=== PATIENT | male | born 1970 | race Caucasian/White ===

== ENCOUNTER 2017-03-09 00:48 | Emergency (ER) | payer MEDICAID, OTHER ==
[~2017-03-09] VITALS: Ht 177.8 cm; Wt 116.6 kg
[~2017-03-09 00:48] MED LIST: AMLO5TAB2 PO; ASPI-621 PO; ASPI-650 PO; ATOR80TA PO; CLOP75TA22 PO; ISOS30TA8 PO; LISI-167 PO; LISI5TAB7 PO; TICA90TA PO; TRAM100T13 PO; [UNRECOGNIZED DRUG - REMARK]
[2017-03-09] MEDS ORDERED: NITROGLYCERIN SINGLE TAB 0.4 MG SL ONE (01:21)
[2017-03-09 01:22] LABS: HEMOGLOBIN 14.2 g/dL (13.7-18.0)
[2017-03-09] MEDS ORDERED: ASPIRIN 81 MG TABLET CHEW ONE (01:22)
[2017-03-09] MEDS ORDERED: SODIUM CHLORIDE FLUSH 10ML SYR IVF ONE (01:30)
[2017-03-09] MEDS ORDERED: NITROGLYCERIN SINGLE TAB 0.4 MG SL PRN (01:30)
[2017-03-09] MEDS ORDERED: ASPIRIN 81 MG TABLET CHEW PO ONE (01:30)
[2017-03-09 01:35] LABS: BLOOD UREA NITROGEN 13 mg/dL (7-18)
[2017-03-09 01:38] LABS: IS PT STATUS REG ER OR PRE ER? YES
[2017-03-09 02:31] VITALS: BP 99/55
== END 2017-03-09 02:35 | disposition home or self-care (01) ==
LOC: ED 02:16
DX: R07.2 Precordial pain (principal); E78.5 Hyperlipidemia, unspecified; I10 Essential (primary) hypertension; I25.10 Atherosclerotic heart disease of native coronary artery without angina pectoris; I25.2 Old myocardial infarction; Z87.891 Personal history of nicotine dependence; Z95.5 Presence of coronary angioplasty implant and graft
CPT/HCPCS: 36415; 71010; 80048; 82040; 84484; 85025; 93005

== ENCOUNTER 2017-04-15 22:02 | Emergency (ER) | payer MEDICAID ==
[~2017-04-15] VITALS: Ht 180.3 cm; Wt 112.5 kg
[2017-04-15 22:04] VITALS: BP 143/97
[2017-04-15] MEDS ORDERED: KETOROLAC 30 MG/1 ML ONE (22:28)
[2017-04-15] MEDS ORDERED: METHOCARBAMOL 750 MG TABLET ONE (22:28)
[2017-04-15] MEDS ORDERED: METHOCARBAMOL 750 MG TABLET PO ONE (22:30)
[2017-04-15] MEDS ORDERED: KETOROLAC 30 MG/1 ML IM ONE (22:30)
== END 2017-04-15 23:31 | disposition home or self-care (01) ==
LOC: ED 22:50
DX: S33.5XXA Sprain of ligaments of lumbar spine, initial encounter (principal); S80.01XA Contusion of right knee, initial encounter; M17.31 Unilateral post-traumatic osteoarthritis, right knee; I10 Essential (primary) hypertension; E78.5 Hyperlipidemia, unspecified; I25.10 Atherosclerotic heart disease of native coronary artery without angina pectoris; W01.0XXA Fall on same level from slipping, tripping and stumbling without subsequent striking against object, initial encounter; Y93.89 Activity, other specified; Y92.89 Other specified places as the place of occurrence of the external cause; Y99.8 Other external cause status
CPT/HCPCS: 72110; 73564; 96372; 99284; J1885

== ENCOUNTER 2017-05-01 19:05 | Emergency (ER) | payer MEDICAID ==
[~2017-05-01] VITALS: Ht 180.3 cm; Wt 118.6 kg
[2017-05-01] MEDS ORDERED: SODIUM CHLORIDE FLUSH 10ML SYR IVF ONE (19:30)
[2017-05-01] MEDS ORDERED: SODIUM CHLORIDE 0.9% 1,000ML IV ONE (19:30)
[2017-05-01] MEDS ORDERED: ASPI-515 PO (19:34)
[2017-05-01] MEDS ORDERED: KETOROLAC 30 MG/1 ML ONE (19:48)
[2017-05-01] MEDS ORDERED: KETOROLAC 30 MG/1 ML IVPush ONE (20:00)
[2017-05-01 20:22] LABS: ASPARTATE AMINO TRANSFERASE 16 U/L (15-37); BLOOD UREA NITROGEN 14 mg/dL (7-18); C-REACTIVE PROTEIN, QUANT 0.23 mg/dL (0.02-0.49)
[2017-05-01 23:21] VITALS: BP 131/94
== END 2017-05-01 23:36 | disposition home or self-care (01) ==
LOC: ED 19:41
DX: K85.00 Idiopathic acute pancreatitis without necrosis or infection (principal); E78.00 Pure hypercholesterolemia, unspecified; E78.5 Hyperlipidemia, unspecified; I25.2 Old myocardial infarction; M54.9 Dorsalgia, unspecified; G89.29 Other chronic pain; I10 Essential (primary) hypertension
CPT/HCPCS: 36415; 76700; 80053; 81003; 83690; 85025; 85651; 86140; 93005; 96361; 96374; 99285; J1885; J7030

== ENCOUNTER 2019-02-02 00:09 | Observation (INO) | payer MEDICAID, OTHER ==
[~2019-02-02] VITALS: Ht 180.3 cm; Wt 110.0 kg
[~2019-02-02 00:09] MED LIST changes: +AMLO-150 PO; -AMLO5TAB2 PO; +ASPI-515 PO; -ASPI-621 PO; +ASPI81TA45 PO; -CLOP75TA22 PO; +CLOP75TA52 PO
--- NOTE | 2019-02-02 00:25 | NUR ---
bib remsa d/t cp ( for 3 days starting from saturday until now ) cp started left chest to left fingers numb tinglings / remsa given asa ntg . vss stable ekg unremarkable vss stable hx stent at 2013 with stent htn [phone] [facility]
[2019-02-02] MEDS ORDERED: LOVA40TA2 PO (00:27)
--- NOTE | 2019-02-02 00:33 | NUR ---
[phone] [facility] called and notified pt is in ed tonight for chest pain
[2019-02-02 00:39] LABS: BASOPHILS # (AUTO) 0.07 x10^3/uL (0-0.1); BASOPHILS % (AUTO) 1 % (0-1); EOSINOPHILS # (AUTO) 0.26 x10^3/uL (0-0.4); EOSINOPHILS % (AUTO) 4 % (1-7); LYMPHOCYTES # (AUTO) 1.82 x10^3/uL (1-3.4); LYMPHOCYTES % (AUTO) 31 % (22-44); MD NO; MEAN CORPUSCULAR HEMOGLOBIN 31.3 pg (27.5-34.5); MEAN CORPUSCULAR HGB CONC 34.1 g/dL (33.2-36.2); MEAN CORPUSCULAR VOLUME 91.8 fL (81-97); MONOCYTES % (AUTO) 8 % (2-9); NEUTROPHILS % (AUTO) 56 % (42-75); PLATELET COUNT 181 x10^3/uL (130-400); RED BLOOD COUNT 4.87 x10^6/uL (4.38-5.82); RED CELL DISTRIBUTION WIDTH 12.9 % (9.4-14.8)
[2019-02-02 00:51] LABS: ALANINE AMINOTRANSFERASE 40 U/L (12-78); ALBUMIN 3.8 g/dL (3.4-5.0); ANION GAP 5 mmol/L (5-15); CALCIUM 8.6 mg/dL (8.5-10.1); CHLORIDE 112 mmol/L (98-107); CREATININE 0.87 mg/dL (0.7-1.3)
[2019-02-02 00:55] LABS: ALKALINE PHOSPHATASE 59 U/L (45-117); BILIRUBIN,TOTAL 0.3 mg/dL (0.2-1.0); TOTAL PROTEIN 6.7 g/dL (6.4-8.2); TROPONIN I < 0.015 ng/mL (0.000-0.045)
--- NOTE | 2019-02-02 02:23 | NUR ---
given report to talha fontanez [facility] vss stable
[2019-02-02 02:42] VITALS: BP 137/94
[2019-02-02] MEDS ORDERED: ACETAMINOPHEN 325 MG TABLET PO PRN (04:30)
[2019-02-02] MEDS ORDERED: ONDANSETRON 2MG/ML, 2ML IVPush PRN (04:30)
[2019-02-02] MEDS ORDERED: POLYETHYLENE GLYCOL 17 GM PACKET PO PRN (04:30)
[2019-02-02] MEDS ORDERED: hydrALAzine 20 MG/ML, 1ML IVPush PRN (04:30)
[2019-02-02] MEDS ORDERED: IBUPROFEN 600 MG TABLET PO PRN (04:30)
[2019-02-02] MEDS ORDERED: morphine SULFATE 10 MG/ML, 1ML IVPush PRN (04:30)
[2019-02-02] MEDS ORDERED: ONDANSETRON ODT 4 MG PO PRN (04:30)
[2019-02-02 06:08] LABS: CHOL/HDL RATIO 3.4; CHOLESTEROL, TOTAL 108 mg/dL (140-239); HDL CHOL % 30 % (26-37); HDL CHOLESTEROL (DIRECT) 32 mg/dL (40-60); LDL CHOLESTEROL,CALCULATED 67 mg/dL (54-169); LDL/HDL RATIO 2.1 (0.5-3.0); TRIGLYCERIDES 44 mg/dL (50-200); TROPONIN I < 0.015 ng/mL (0.000-0.045); VLDL CHOLESTEROL 9 mg/dL (0-25)
[2019-02-02 06:56] VITALS: BP 128/86
[2019-02-02] MEDS ORDERED: LISINOPRIL 10 MG TABLET PO SCH (09:00)
[2019-02-02] MEDS ORDERED: ASPIRIN 81 MG TABLET EC PO SCH (09:00)
[2019-02-02] MEDS ORDERED: AMLODIPINE 5 MG TABLET PO SCH (09:00)
[2019-02-02] MEDS ORDERED: SODIUM CHLORIDE FLUSH 10ML SYR IVF SCH (09:00)
[2019-02-02] MEDS ORDERED: REGADENOSON 0.4 MG/5 ML SYRINGE ONE (10:34)
[2019-02-02 13:01] VITALS: BP 114/73
[2019-02-02] MEDS ORDERED: LOVASTATIN 40 MG TABLET PO SCH (21:00)
== END 2019-02-02 17:09 | disposition home or self-care (01) ==
LOC: ED 00:43 → INTOOBSV 01:43 → EDIP 01:43 → 5SO 02:47 → DCLOUNGE 17:05
PROVIDERS: ADMIT Hospitalist; ATTEND Hospitalist
DX: R07.89 Other chest pain (principal); E66.9 Obesity, unspecified; E78.5 Hyperlipidemia, unspecified; I11.9 Hypertensive heart disease without heart failure; I25.10 Atherosclerotic heart disease of native coronary artery without angina pectoris; Z82.49 Family history of ischemic heart disease and other diseases of the circulatory system; I25.2 Old myocardial infarction; Z87.891 Personal history of nicotine dependence; Z95.5 Presence of coronary angioplasty implant and graft
CPT/HCPCS: 36415; 71045; 78452; 80053; 80061; 83735; 84484; 85025; 93005; 93017; 99284; A9502; C9898; G0378; J2785

== ENCOUNTER → 2019-04-10 | Outpatient (CLI) | payer MEDICAID ==
[~2019-04-10] MED LIST changes: +LOVA40TA2 PO
== END | disposition home or self-care (01) ==
LOC: CFH 11:02
PROVIDERS: ATTEND Registered Nurse
DX: J98.11 Atelectasis (principal); I10 Essential (primary) hypertension; Z98.61 Coronary angioplasty status
CPT/HCPCS: 71046

== ENCOUNTER → 2019-04-16 | Outpatient (CLI) | payer MEDICAID | END | disposition home or self-care (01) | LOC: CVU 15:32 | PROVIDERS: ATTEND Registered Nurse | DX: I08.2 Rheumatic disorders of both aortic and tricuspid valves (principal); I11.9 Hypertensive heart disease without heart failure; I25.10 Atherosclerotic heart disease of native coronary artery without angina pectoris; E78.5 Hyperlipidemia, unspecified; I25.2 Old myocardial infarction; Z87.891 Personal history of nicotine dependence; Z86.59 Personal history of other mental and behavioral disorders | CPT/HCPCS: 93306 ==

== ENCOUNTER → 2019-05-13 | Outpatient (CLI) | payer MEDICAID | END | disposition home or self-care (01) | LOC: CFH 15:15 | PROVIDERS: ATTEND Orthopaedic Surgery | DX: S46.812A Strain of other muscles, fascia and tendons at shoulder and upper arm level, left arm, initial encounter (principal); M75.82 Other shoulder lesions, left shoulder; M19.012 Primary osteoarthritis, left shoulder; X58.XXXA Exposure to other specified factors, initial encounter; Y93.89 Activity, other specified; Y92.89 Other specified places as the place of occurrence of the external cause; Y99.8 Other external cause status ==

== ENCOUNTER 2019-05-22 19:59 | Emergency (ER) | payer MEDICAID ==
[~2019-05-22] VITALS: Ht 180.3 cm; Wt 111.1 kg
[2019-05-22] MEDS ORDERED: CLOP75TA52 PO (20:11)
[2019-05-22] MEDS ORDERED: ATOR-2 PO (20:11)
[2019-05-22 21:00] LABS: BASOPHILS # (AUTO) 0.04 x10^3/uL (0-0.1); BASOPHILS % (AUTO) 1 % (0-1); EOSINOPHILS # (AUTO) 0.22 x10^3/uL (0-0.4); EOSINOPHILS % (AUTO) 3 % (1-7); LYMPHOCYTES # (AUTO) 2.01 x10^3/uL (1-3.4); LYMPHOCYTES % (AUTO) 32 % (22-44); MD NO; MEAN CORPUSCULAR HEMOGLOBIN 31.4 pg (27.5-34.5); MEAN CORPUSCULAR HGB CONC 33.6 g/dL (33.2-36.2); MEAN CORPUSCULAR VOLUME 93.5 fL (81-97); MEAN PLATELET VOLUME 8.4 fL (7.4-10.4); MONOCYTES # (AUTO) 0.45 x10^3/uL (0.2-0.8); MONOCYTES % (AUTO) 7 % (2-9); NEUTROPHILS # (AUTO) 3.56 x10^3/uL (1.8-6.8); NEUTROPHILS % (AUTO) 57 % (42-75); PLATELET COUNT 195 x10^3/uL (130-400); RED BLOOD COUNT 4.85 x10^6/uL (4.38-5.82)
[2019-05-22 21:11] LABS: ANION GAP 5 mmol/L (5-15); CALCIUM 8.9 mg/dL (8.5-10.1); CHLORIDE 109 mmol/L (98-107); CREATININE 1.03 mg/dL (0.7-1.3)
[2019-05-22 21:15] LABS: TROPONIN I < 0.015 ng/mL (0.000-0.045)
[2019-05-22 21:40] VITALS: BP 113/72
--- NOTE | 2019-05-22 21:41 | NUR ---
first contact with pt. pt c/o light headed when he got off of work today, resolved now. Hx of CO and stent placement, states he just wants an EKG and his blood pressure checked. EKG done in triage. all monitors in place. call light within reach. denies cp. edmd at bedside to evaluate at this time.
--- NOTE | 2019-05-22 22:03 | NUR ---
PT GIVEN DC INSTRUCTIONS. PT'S AOX4. RESPS EVEN AND UNLABORED. PT AMB TO DC WITH STEADY GAIT. NO ACUTE DISTRESS AT DC.
== END 2019-05-22 22:03 | disposition home or self-care (01) ==
LOC: ED 21:55
DX: R42 Dizziness and giddiness (principal); I25.2 Old myocardial infarction; I25.10 Atherosclerotic heart disease of native coronary artery without angina pectoris; I10 Essential (primary) hypertension; E78.5 Hyperlipidemia, unspecified
CPT/HCPCS: 36415; 71045; 80048; 82040; 84484; 85025; 93005; 99284

== ENCOUNTER 2019-12-25 08:24 | Emergency (ER) | payer SELFPAY ==
[~2019-12-25] VITALS: Ht 180.3 cm; Wt 120.1 kg
[~2019-12-25 08:24] MED LIST changes: +ATOR-2 PO
[2019-12-25 08:30] VITALS: BP 121/76
[2019-12-25] MEDS ORDERED: KETOROLAC 30 MG/1 ML IM ONE (09:00)
[2019-12-25] MEDS ORDERED: KETOROLAC 30 MG/1 ML ONE (09:08)
== END 2019-12-25 09:59 | disposition home or self-care (01) ==
LOC: ED 09:07
DX: M79.672 Pain in left foot (principal); M72.2 Plantar fascial fibromatosis; I10 Essential (primary) hypertension; E78.5 Hyperlipidemia, unspecified; I25.2 Old myocardial infarction; I25.10 Atherosclerotic heart disease of native coronary artery without angina pectoris
CPT/HCPCS: 73630; 96372; 99283; J1885